=== PATIENT | male | born 1960 | race Caucasian/White ===

== ENCOUNTER 2020-10-19 09:11 | Day surgery (SDC) | payer OTHER ==
[~2020-10-19] VITALS: Ht 167.6 cm; Wt 64.7 kg
[~2020-10-19 09:11] MED LIST: ADVIL200 MG PO; CYCLOBENZAPRINE10 MG PO
--- NOTE | 2020-10-19 10:37 | NUR ---
10/19/20 1037 Brooke Hopson 1031 PATIENT ARRIVES TO PACU AWAKE BUT DROWSY. RESP EVEN AND UNLABORED, ROOM AIR SATS >95%. PATIENT DENIES PAIN OR NAUSEA. FALLS ASLEEP WHEN NOT STIMULATED.
--- NOTE | 2020-10-20 07:31 | OR ---
[facility] [address] [place], [place] [address] Signed DATE OF OPERATION: 10/19/2020 SURGEON: Reyna Cooper MD PREOPERATIVE DIAGNOSES: 1. Screening. 2. Internal and external hemorrhoids. 3. Daily alcohol use. 4. Daily use of snuff. POSTOPERATIVE DIAGNOSES: 1. 4 mm polyp at hepatic flexure. 2. 6 mm polyp at 95 cm. 3. 5 mm polyp at 65 cm. 4. 3 mm polyps x2 at 10 cm. PROCEDURE: Colonoscopy with hot biopsy. ESTIMATED BLOOD LOSS: None. INDICATIONS: Nuno is a 60-year-old gentleman, asked to see me for his initial screening colonoscopy. His went through her colonoscopy just a few weeks ago. He really has no lower GI complaints. There is no family history of colon cancer or polyps. In the office, I gave him a pamphlet on colonoscopy. He understands the nature of the test along with the risks including, but not limited to gas, bloating, crampy abdominal pain, bleeding, perforation requiring surgery, and missed diagnosis. He also understands the need for IV conscious sedation. He had expressed understanding and wished to proceed. PROCEDURE NOTE: Nuno was taken into our endoscopy suite and placed in the left lateral decubitus position. He was given IV sedation with 6 mg of Versed and 150 mcg of fentanyl. A digital rectal exam was performed. He does have some induration and enlargement of the prostate gland. Very little really in the way of external hemorrhoids. Good sphincter tone. The adult colonoscope was introduced and advanced under direct visualization of the camera. It took a little extra sedation abdominal compression in order to advance the scope around the splenic flexure and all the way into the cecum itself. His prep was quite excellent. We could easily see the appendiceal orifice and the ileocecal Electronically Signed By: REYNA COOPER MD 10/20/20 0731 PATIENT NAME: NUNO MCDONOUGH OPERATIVE REPORT DATE OF : 58 REPORT #: [id number] PHYSICIAN: REYNA COOPER MD PCP: BRIAN PANTOJA PA-C REPORT IS CONFIDENTIAL AND NOT TO BE RELEASED WITHOUT AUTHORIZATION [facility] [address] [place], [place] [address] Signed valve. The scope was slowly withdrawn. We took pictures throughout for photodocumentation. The above-mentioned polyps were easily removed with the help of hot biopsy forceps. There was no diverticulosis. Upon retroflexion of scope, we really did not see any evidence of any significant internal hemorrhoid columns. After this, the gas was suctioned out and the colonoscope removed. Nuno tolerated the procedure quite well. RECOMMENDATIONS: I will see Nuno back in the office in 7 to 14 days to review his results. MD BRIDGETTE Kessler/CALVINL /[id number] cc: DORIS June MD Copies: REYNA COOPER MD ~ Electronically Signed By: REYNA COOPER MD 10/20/20 0731 PATIENT NAME: NUNO MCDONOUGH OPERATIVE REPORT DATE OF : 58 REPORT #: [id number] PHYSICIAN: REYNA COOPER MD PCP: BRIAN PANTOJA PA-C REPORT IS CONFIDENTIAL AND NOT TO BE RELEASED WITHOUT AUTHORIZATION
--- NOTE | 2020-10-20 17:37 | PATH ---
[facility] [address] [place], [place] [address] Signed SPECIMEN(S): A HEPATIC FLEXURE POLYP SPECIMEN(S): B COLON POLYP AT 95 CM SPECIMEN(S): C COLON POLYP AT 65 CM SPECIMEN(S): D RECTUM AT 10 CM SPECIMEN SOURCE: A. HEPATIC FLEXURE POLYP B. COLON POLYP AT 95 CM C. COLON POLYP AT 65 CM D. RECTUM AT 10 CM CLINICAL HISTORY: Screening. MICROSCOPIC DESCRIPTION: Histologic sections of all submitted blocks are examined by light microscopy. These findings, together with the gross examination, support the pathologic diagnosis. FINAL PATHOLOGIC DIAGNOSIS: A. Hepatic flexure polyp: - Tubular adenoma (one fragment). B. Colon polyp at 95 cm: - Tubular adenoma (one fragment). C. Colon polyp at 65 cm: - Tubular adenoma (one fragment). D. Rectum at 10 cm: - Benign colonic mucosa with reactive features and focal slight hyperplastic change. JVR:[facility]:C2NR GROSS DESCRIPTION: Four specimens are received in four containers, labeled "DL." A. The specimen, labeled "DL, 1," and designated on the requisition "hepatic flexure," is received in formalin and consists of one garsia soft tissue fragment that measures 0.3 cm in greatest dimension. The specimen is entirely submitted in cassette (A1). B. The specimen, labeled "DL, 2," and designated on the requisition "colon polyp at 95 cm," is received in formalin and consists of one garsia soft tissue polypoid fragment that measures 0.4 cm in greatest dimension. The specimen is entirely submitted in cassette (B1). C. The specimen, labeled "DL, 3," and designated on the requisition "colon PATIENT NAME: NUNO MCDONOUGH PATHOLOGY DATE OF : 58 REPORT #: [id number] PHYSICIAN: MIRTHA PATHOLOGY PCP: BRIAN PANTOJA PA-C REPORT IS CONFIDENTIAL AND NOT TO BE RELEASED WITHOUT AUTHORIZATION [facility] [address] [place], [place] [address] Signed polyp at 65 cm," is received in formalin and consists of one garsia soft tissue polypoid fragment that measures 0.3 cm in greatest dimension. The specimen is entirely submitted in cassette (C1). D. The specimen, labeled "DL, 4," and designated on the requisition "rectum at 10 cm," is received in formalin and consists of two garsia soft tissue fragments that measure 0.2 to 0.3 cm in greatest dimension. The specimen is entirely submitted in cassette (D1). AT (under the direct supervision of a pathologist) The Gross Description was prepared using a voice recognition system. The report was reviewed for accuracy; however, sound-alike word errors, addition and/or deletions may occur. If there is any question about this report, please contact Client Services. PERFORMING LABORATORY: The technical component was performed by [facility], [address] [place] [id number] ([employer]ate Technician: Shahnaz Fraser MD; CLIA# [id number]). Professional interpretation was performed by [facility], [facility], [address] [place] [id number]. Diagnostician: Brian Gomes MD Pathologist Electronically Signed 10/20/2020 Copies: ~ PATIENT NAME: NUNO MCDONOUGH PATHOLOGY DATE OF : 58 REPORT #: [id number] PHYSICIAN: M[facility] PATHOLOGY PCP: BRIAN PANTOJA PA-C REPORT IS CONFIDENTIAL AND NOT TO BE RELEASED WITHOUT AUTHORIZATION
== END 2020-10-19 11:10 | disposition home or self-care (01) ==
LOC: OPS 09:11 → DS 09:19 → OPS 10:30
PROVIDERS: ATTEND Colon & Rectal Surgery
PROC: 0DBE8ZX Excision of Large Intestine, Via Natural or Artificial Opening Endoscopic, Diagnostic (ICD-10-PCS; 2020-10-19)
PROC: 0DBL8ZX Excision of Transverse Colon, Via Natural or Artificial Opening Endoscopic, Diagnostic (ICD-10-PCS; 2020-10-19)
PROC: 0DBP8ZX Excision of Rectum, Via Natural or Artificial Opening Endoscopic, Diagnostic (ICD-10-PCS; principal; 2020-10-19 10:30)
DX: Z12.11 Encounter for screening for malignant neoplasm of colon (principal); D12.3 Benign neoplasm of transverse colon; K64.4 Residual hemorrhoidal skin tags; F17.220 Nicotine dependence, chewing tobacco, uncomplicated
CPT/HCPCS: 99153; G0500; J2250; J3010; J7121